=== PATIENT | female | born 2005 | race Caucasian/White ===

== ENCOUNTER 2025-04-16 18:12 | Emergency (ER) | payer OTHER, SELFPAY ==
[2025-04-16 18:18] VITALS: BP 134/82; PULSE 71; TEMP 36.9; O2SAT 100; BMI 16.7
--- NOTE | 2025-04-16 18:22 | XR_ITS ---
[facility] [place] [address] Patient Name: JEVON OCHOA MRN: [id number] date: 2005 Sex: F Assigned Patient Location: ER Current Patient Location: Accession/Order Number: [id number] Exam Date: 04/16/2025 18:30 Report Date: 04/16/2025 19:31 At the request of: TEE MARTÍNEZ DO Procedure: XR tibia fibula LT 2V 2 views left tibia-fibula CLINICAL HISTORY: distal tibia bruising, injury 3 days ago COMPARISON: None FINDINGS: No fracture or dislocation. Soft tissues unremarkable. Negative for radiopaque foreign body XR/XR tibia fibula LT 2V IMPRESSION: Negative acute osseous abnormality. Impression dictated by: Reed Dale M.D. 04/16/2025 7:31 PM Dictation Location: [place] [address] Electronically authenticated by: [id number] Y Date: 04/16/2025 19:31
--- NOTE | 2025-04-16 19:17 | ED.LOWEXI1 ---
HPI HPI - Extremity Injury (Lower) General Chief Complaint: Extremity Injury, Lower Stated Complaint: LEFT LEG HAS BRUISING AND BUMP FROM A FALL Time Seen by Provider: 04/16/25 18:16 Source: patient Mode of arrival: walk-in Limitations: no limitations History of Present Illness HPI Narrative: This 19-year-old female was signed out to me at shift change pending x-rays of the left lower leg. The patient states she was camping over the weekend and tripped over a cornhole board. She landed on the edge of the board. She sustained some bruising and has some tenderness at the lateral aspect of the left lower leg. There is no calf swelling or tenderness. I reviewed the x-ray. There is no fracture dislocation or foreign body noted. The patient states she only has pain when she is ambulating. She has not been taking any Tylenol or Motrin because she states she does not like taking medications. I suggested that she use ice if needed and use the Tylenol Motrin if the pain is such that she requires it. She is agreeable to this. She is otherwise stable for discharge. Related Data Home Medications ?Medication ?Instructions ?Recorded ?Confirmed No Known Home Medications 04/16/25 04/16/25 Allergies Allergy/AdvReac Type Severity Reaction Status Date / Time No Known Drug Allergies Allergy Verified 04/16/25 18:17 Opioid HPI Opioid Management Most Recent Pain and Opioid Data: Last Pain Scale 8 Today, 18:18 PFSH PFSH Social History Little interest or pleasure in doing things: not at all Feeling down, depressed, or hopeless: not at all Exam Constitutional Vital Signs, click to edit/add: Last Vital Signs Temp 98.4 F 04/16/25 18:18 Pulse 71 04/16/25 18:18 Resp 16 04/16/25 18:18 BP 134/82 04/16/25 18:18 Pulse Ox 100 04/16/25 18:18 O2 Del Method Room Air 04/16/25 18:18 Course Vital Signs Vital signs: Vital Signs Temperature 98.4 F 04/16/25 18:18 Pulse Rate 71 04/16/25 18:18 Respiratory Rate 16 04/16/25 18:18 Blood Pressure 134/82 04/16/25 18:18 Pulse Oximetry 100 04/16/25 18:18 Oxygen Delivery Method Room Air 04/16/25 18:18 Temperature 98.4 F 04/16/25 18:18 Pulse Rate 71 04/16/25 18:18 Respiratory Rate 16 04/16/25 18:18 Blood Pressure 134/82 04/16/25 18:18 Pulse Oximetry 100 04/16/25 18:18 Oxygen Delivery Method Room Air 04/16/25 18:18 Discharge Plan Discharge Chief Complaint: Extremity Injury, Lower Clinical Impression: Contusion of left lower leg Patient Disposition: Home, Self-Care Time of Disposition Decision: 19:17 Condition: Good Prescriptions / Home Meds: No Action No Known Home Medications Print Language: Turkmen Instructions: Contusion in Adults (ED) Referrals: ILENE GOETZ [Primary Care Provider] - 1 week
--- NOTE | 2025-04-16 19:21 | PC.NURSE ---
Pt stated to MD that she had to leave. MD asked her to stay for paperwork D/C instructions. RN in to D/C 2 minutes later. Pt left.
== END 2025-04-16 19:23 | disposition home or self-care (01) ==
PROVIDERS: Emergency Provider Emergency Medicine
DX: S80.12XA Contusion of left lower leg, initial encounter (principal); W01.198A Fall on same level from slipping, tripping and stumbling with subsequent striking against other object, initial encounter
CPT/HCPCS: 73590; 99283